=== PATIENT | female | born 1960 | race Caucasian/White ===

== ENCOUNTER 2017-11-23 08:59 | Emergency (ER) | payer BC ==
[~2017-11-23] VITALS: Ht 165.1 cm; Wt 94.8 kg
[~2017-11-23 08:59] MED LIST: CALCIUM500 MG PO; CYMBALTA30 MG PO; LISINOPRIL-HCT1 EAC2 PO; LISINOPRIL10 MG PO; MOBIC7.5 MG PO; PROAIR RESPICL90 MCG; VITAMIN D250000 UNIT PO
== END 2017-11-23 11:05 | disposition home or self-care (01) ==
LOC: ED 08:59
DX: S09.90XA Unspecified injury of head, initial encounter (principal); E11.9 Type 2 diabetes mellitus without complications; I10 Essential (primary) hypertension; Z88.2 Allergy status to sulfonamides; Z88.8 Allergy status to other drugs, medicaments and biological substances; Z88.1 Allergy status to other antibiotic agents; Z79.899 Other long term (current) drug therapy; W22.8XXA Striking against or struck by other objects, initial encounter
CPT/HCPCS: 70450; 99284